=== PATIENT | female | born 1955 | race Caucasian/White ===

== ENCOUNTER 2018-08-26 12:12 | Inpatient (IN) | payer SELFPAY ==
[~2018-08-26] VITALS: Ht 157.5 cm; Wt 90.2 kg
--- NOTE | 2018-08-26 15:29 | ERD ---
ER Documentation Chief Complaint Chief Complaint abd pain , fever x 1 day , vomiting today HPI The patient is a 62-year-old female, presenting to the ER because of progressive abdominal pain, fever, vomiting for 1 day, denies hematemesis/hematochezia, the pain is 10/10, no aggravating/relieving factor. She denies any neck pain, chest pain, dyspnea, dysuria, diarrhea, constipation. She does not smoke nor drink Past medical/surgical history: None ROS All systems reviewed and are negative except as per history of present illness. Medications Home Meds No Active Prescriptions or Reported Meds Allergies Allergies: Coded Allergies: No Known Allergy (Unverified , 08/26/18) Physical Exam Vitals Vital Signs Date Temp Pulse Resp B/P (MAP) Pulse Ox O2 O2 Flow FiO2 Time Delivery Rate 08/26/18 98.6 89 18 125/66 95 Room Air 17:19 (85) 08/26/18 100.9 86 18 125/87 99 12:35 (100) Physical Exam Const: No acute distress. Head: Atraumatic. Eyes: Normal Conjunctiva. ENT: Normal External Ears, Nose and Mouth. Neck: Full range of motion. No meningismus. Resp: Clear to auscultation bilaterally. Cardio: Regular rate and rhythm. Abd: Soft, non distended, normal bowel sounds, right lower quadrant tenderness, mild right upper quadrant tenderness, no rigidity/rebound/CVA tenderness. Skin: No petechiae or rashes. Back: No midline or flank tenderness. Ext: No cyanosis, or edema. Neur: Awake and alert. No focal deficit Psych: Normal Mood and Affect. Result Diagram: 08/26/18 1546 08/26/18 1546 Results 24 hrs Laboratory Tests Test 08/26/18 15:46 08/26/18 17:15 White Blood Count 19.6 10^3/ul Red Blood Count 4.82 10^6/ul Hemoglobin 14.7 g/dl Hematocrit 44.1 % Mean Corpuscular Volume 91.5 fl Mean Corpuscular Hemoglobin 30.5 pg Mean Corpuscular Hemoglobin Concent 33.3 g/dl Red Cell Distribution Width 12.4 % Platelet Count 216 10^3/UL Mean Platelet Volume 11.4 fl Immature Granulocytes % 0.500 % Neutrophils % 87.6 % Lymphocytes % 5.6 % Monocytes % 6.0 % Eosinophils % 0.0 % Basophils % 0.3 % Nucleated Red Blood Cells % 0.0 /100WBC Immature Granulocytes # 0.100 10^3/ul Neutrophils # 17.1 10^3/ul Lymphocytes # 1.1 10^3/ul Monocytes # 1.2 10^3/ul Eosinophils # 0.0 10^3/ul Basophils # 0.1 10^3/ul Nucleated Red Blood Cells # 0.0 10^3/ul Sodium Level 140 mmol/L Potassium Level 3.0 mmol/L Chloride Level 101 mmol/L Carbon Dioxide Level 26 mmol/L Anion Gap 13 Blood Urea Nitrogen 17 mg/dl Creatinine 0.91 mg/dl Est Glomerular Filtrat Rate mL/min > 60 mL/min Glucose Level 133 mg/dl Calcium Level 9.2 mg/dl Total Bilirubin 1.2 mg/dl Direct Bilirubin 0.00 mg/dl Indirect Bilirubin 1.2 mg/dl Aspartate Amino Transf (AST/SGOT) 27 IU/L Alanine Aminotransferase (ALT/SGPT) 25 IU/L Alkaline Phosphatase 109 IU/L Total Protein 8.2 g/dl Albumin 4.3 g/dl Globulin 3.90 g/dl Albumin/Globulin Ratio 1.10 Lipase 131 U/L Bedside Urine pH (LAB) 7.0 Bedside Urine Protein (LAB) Negative Bedside Urine Glucose (UA) Negative Bedside Urine Ketones (LAB) Negative Bedside Urine Blood Trace-lysed Bedside Urine Nitrite (LAB) Negative Bedside Urine Leukocyte Esterase (L Negative Current Medications Medications Dose Sig/[place] Start Time Status Last (Trade) Ordered Route PRN Stop Time Admin Dose Reason Admin Sodium 1,000 ml @ Q1H STAT 08/26/18 DC 08/26/18 Chloride 1,000 mls/hr IV 15:42 15:47 08/26/18 16:41 Ondansetron 4 mg ONCE STAT 08/26/18 DC 08/26/18 HCl (Zofran IV 15:42 15:47 Inj) 08/26/18 15:43 Piperacillin 100 ml @ ONCE ONCE 08/26/18 DC 08/26/18 Sod/ 200 mls/hr IVPB 17:00 17:30 Tazobactam 08/26/18 17:29 Sod Procedures/MDM [address] [address] Radiology Main Line: [phone] DIAGNOSTIC IMAGING REPORT Patient: ANAI HERNANDEZ : 1955 Age: 62 Sex: F [id number] DOS: 08/26/18 1542 Ordering MD: IRENE WALTERS MD Location: E/R Room/Bed: AMENDMENT: 08/26/2018 5:33:14 PM Jean Pierre Garrison M.d This report contains findings which may be critical to patient care. Findings were discussed by telephone with Dr. Walters at 05:30 p.m. on 08/26/2018. The findings were acknowledged and understood. PROCEDURE: CT Abdomen and Pelvis Without Intravenous Contrast CLINICAL INDICATION: Abdominal pain. TECHNIQUE: Axial computed tomography images of the abdomen and pelvis without intravenous contrast. Sagittal and coronal reformatted images were created and reviewed. C TDIvol (mGy) = 19.56; total DLP (mGy-cm) = 1157.37. This CT exam was performed using one or more of the following dose reduction techniques: automated exposure control, adjustment of the mA and/or kV according to patient size, and/or use of iterative reconstruction technique. DICOM images are available. COMPARISON: None FINDINGS: LUNG BASES: Unremarkable. No mass. No consolidation. MEDIASTINUM: Small hiatal hernia noted. ABDOMEN: LIVER: The liver demonstrates decreased attenuation, consistent with hepatic steatosis. GALLBLADDER AND BILE DUCTS: Tiny calcified gallstones in the gallbladder. No gallbladder wall thickening. No pericholecystic fluid. No biliary dilatation. PANCREAS: Unremarkable. No ductal dilation. SPLEEN: Unremarkable. No splenomegaly. ADRENALS: Unremarkable. No mass. KIDNEYS AND URETERS: Unremarkable. No obstructing stones. No hyd ronephrosis. STOMACH AND BOWEL: Unremarkable. No obstruction. No mucosal thickening. PELVIS: APPENDIX: The appendix is enlarged, measuring 14 mm in diameter. There is mural enhancement and mild periappendiceal inflammation. The findings are consistent with acute appendicitis. BLADDER: Unremarkable. No stones. REPRODUCTIVE: Unremarkable as visualized. ABDOMEN and PELVIS: INTRAPERITONEAL SPACE: Unremarkable. No free air. No significant fluid collection. BONES/JOINTS: Degenerative spine changes are noted. Severe degeneration of the right hip. No acute fracture. No dislocation. SOFT TISSUES: Small umbilical hernia, containing only fat. VASCULATURE: The abdominal aorta is atherosclerotic. No aneurysm. LYMPH NODES: Unremarkable. No enlarged lymph nodes. IMPRESSION: 1. The appendix is enlarged, measuring 14 mm in diameter. There is mural enhan cement and mild periappendiceal inflammation. The findings are consistent with acute appendicitis. There is no associated perforation or abscess. 2. The liver demonstrates decreased attenuation, consistent with hepatic steatosis. 3. Tiny calcified gallstones in the gallbladder. No gallbladder wall thickening. No pericholecystic fluid. No biliary dilatation. RPTAT: [facility] Kate Garrison Physician Spring Machine Operator Date Time Electronically viewed and signed by Kate Garrison Physician Spring Machine Operator on 08/26/2018 17:34 RmC/ CC: IRENE WALTERS MD [id number] [place] [address] Radiology Main Line: [phone] DIAGNOSTIC IMAGING REPORT Patient: ANAI HERNANDEZ : 1955 Age: 62 Sex: F MR #: [id number] DOS: 08/26/18 1542 Ordering MD: IRENE WALTERS MD Location: E/R Room/Bed: PROCEDURE: US Abdomen. CLINICAL INDICATION: Abdominal Pain TECHNIQUE: Multiple real-time images were acquired of the patient's abdomen and retroperitoneum utilizing a high resolution transducer. COMPARISON: None FINDINGS: The pancreas is poorly visualized secondary to overlying bowel gas. The liver is enlarged measuring 18.8 cm and diffusely increased in echogenicity. This most likely represents fatty infiltration of the liver. Flow in the main portal vein is directed towards the liver. A gallstone is seen within the gallbladder. There is no evidence of pericholecystic fluid or gallbladder wall thickening. The technologist did not report a sonographic White's sign. The common bile duct measures 3.5 mm in maximal dimension. No free fluid is identified. There is mild thinning of the cortex of the right kidney. The right kidney measures 11.2 cm in length. The renal cortex on the right measures 0.6 cm. IMPRESSION: 1. Cholelithiasis. The gallbladder is otherwise sonographically unremarkable. 2. The liver is enlarged measuring 18.8 cm and diffusely increased in echogenicity, likely related to hepatic steatosis. 3. Mild thinning of the renal cortex of the right kidney. The renal cortex on the right measures 0.6 cm. RPTAT:AAJJ Marquise Ellison Physician Date Time Electronically viewed and signed by Marquise Ellison Physician on 08/26/2018 16:58 MC/ CC: IRENE WALTERS MD [id number] EKG chest x-ray pending MEDICAL MAKING DECISION: The patient is a 62-year-old female, presenting with acute appendicitis, acute hypokalemia, cholelithiasis. She was treated with 1 L normal saline, and Zosyn IV for acute appendicitis, Zofran IV for nausea, Tylenol suppository for fever, morphine 2 mg IV for pain, potassium chloride 60 mEq IV for acute hypokalemia The differential diagnoses considered include but are not limited to cholelit hiasis, cholecystitis, choledocholithiasis, cholangitis, pancreatitis, hepatitis, gastritis, peptic ulcer disease, gastric ulcer, appendicitis, cystitis, diverticulitis, partial small bowel obstruction. Consultation: I discussed the patient with the on-call surgeon Dr. Ga at 5:20 PM, who was made aware of the lab, the patient condition and treatment and he accepted the consult Departure Diagnosis: Primary Impression: Appendicitis Additional Impressions: Hypokalemia Cholelithiasis Condition: Stable Comments I discussed the findings with the patient. I discussed the patient with Dr Ball at 5:25 PM, who was made aware of the lab, the treatment, the patient condition. The patient is admitted to [facility] Disclaimer: Inadvertent spelling and grammatical errors are likely due to EHR/dictation software use and do not reflect on the overall quality of patient care. Also, please note that the electronic time recorded on this note does not necessarily reflect the actual time of the patient encounter. IRENE WALTERS MD Aug 26, 2018 15:29
[2018-08-26] MEDS ORDERED: ONDANSETRON 4 MG INJ IV STA ×2 (15:42→17:56)
[2018-08-26] MEDS ORDERED: SOD CHLORIDE 0.9% 1,000 ML IV STA (15:42)
[2018-08-26] MEDS ORDERED: PIPER-TAZO 3.375 GM IV (PMX) 100 ML IVPB ONE (17:00)
[2018-08-26] MEDS ORDERED: morphine 2 MG INJ IV STA (17:56)
[2018-08-26] MEDS: DEXTROSE 5%-0.45% NACL 1,000 ML IV SCH (17:57)
[2018-08-26] MEDS ORDERED: NACL 0.9% 3 ML SYG IV SCH (18:00)
[2018-08-26] MEDS ORDERED: MAGNESIUM HYDROXIDE 30ML CUP PO PRN (18:00)
[2018-08-26] MEDS ORDERED: ONDANSETRON 4 MG INJ IV PRN (18:00)
[2018-08-26] MEDS ORDERED: DOCUSATE SODIUM 100 MG CAP PO PRN (18:00)
[2018-08-26] MEDS ORDERED: ACETAMINOPHEN 650 MG SUPP PR ONE (18:00)
[2018-08-26] MEDS: POTASSIUM CHLORIDE 100 ML IVPB SCH ×3 (18:44→21:02)
--- NOTE | 2018-08-26 18:51 | HP ---
Date/Time of Note Date/Time of Note DATE: 08/26/18 TIME: 18:42 Assessment/Plan VTE Prophylaxis SCD applied (from Nsg): Yes Pharmacological prophylaxis: NA/contraindicated Pharm contraindication: low risk/ambulating Lines/Catheters IV Catheter Type (from Nrsg): Saline Lock Assessment/Plan Assessment/Plan 1. Acute appendicitis - seen on CT scan - Dr. Ga consulted by ED for surgical evaluation - pain control and started on empiric antibiotics given presented with low grade fever and elevated WBC - IVF and will keep NPO 2. Arthritis - patient ambulates with a cane but denies any SOB with ambulation 3. Diet - NPO for now 4. Disposition - Admit to Med/Surg for surgical evaluation of acute appendicitis. Patient is medically cleared for surgical intervention. Result Diagram: 08/26/18 1546 08/26/18 1546 Results 24hrs Laboratory Tests Test 08/26/18 15:46 08/26/18 17:15 White Blood Count 19.6 H Red Blood Count 4.82 Hemoglobin 14.7 Hematocrit 44.1 Mean Corpuscular Volume 91.5 Mean Corpuscular Hemoglobin 30.5 Mean Corpuscular Hemoglobin Concent 33.3 Red Cell Distribution Width 12.4 Platelet Count 216 Mean Platelet Volume 11.4 H Immature Granulocytes % 0.500 H Neutrophils % 87.6 H Lymphocytes % 5.6 L Monocytes % 6.0 Eosinophils % 0.0 Basophils % 0.3 Nucleated Red Blood Cells % 0.0 Immature Granulocytes # 0.100 H Neutrophils # 17.1 H Lymphocytes # 1.1 Monocytes # 1.2 H Eosinophils # 0.0 Basophils # 0.1 Nucleated Red Blood Cells # 0.0 Sodium Level 140 Potassium Level 3.0 L Chloride Level 101 Carbon Dioxide Level 26 Anion Gap 13 Blood Urea Nitrogen 17 Creatinine 0.91 Est Glomerular Filtrat Rate mL/min > 60 Glucose Level 133 Calcium Level 9.2 Total Bilirubin 1.2 Direct Bilirubin 0.00 Indirect Bilirubin 1.2 H Aspartate Amino Transf (AST/SGOT) 27 Alanine Aminotransferase (ALT/SGPT) 25 Alkaline Phosphatase 109 Total Protein 8.2 H Albumin 4.3 Globulin 3.90 H Albumin/Globulin Ratio 1.10 Lipase 131 Bedside Urine pH (LAB) 7.0 Bedside Urine Protein (LAB) Negative Bedside Urine Glucose (UA) Negative Bedside Urine Ketones (LAB) Negative Bedside Urine Blood Trace-lysed H Bedside Urine Nitrite (LAB) Negative Bedside Urine Leukocyte Esterase (L Negative HPI/ROS Admit Date/Time Admit Date/Time 08/26/18 Hx of Present Illness 62 yo F with no significant past medical history presented to ED with worsening RLQ pain for the past day. Patient states she had subjective fevers yesterday followed by multiple episodes of nonbloody emesis. She continued with emesis today and was brought into the ED by family. Patient is currently complaining of headache as well as RUQ pain. She describes the pain as moderate, nonradiating, localized to the RLQ, with associated nausea and vomiting. She l ast ate yesterday am. She denies any cardiac history and able to ambulate without shortness of breath. Currently, patient denies any chest pain, palpitations, dizziness, shortness of breath, urinary issues, constipation, or diarrhea. ROS All 12 systems reviewed and pertinent positives as per HPI. All others negative. Constitutional: nausea Eyes: No discharge ENT: No congestion Respiratory: No cough, No shortness of breath, No sputum, No wheezing Cardiovascular: No chest pain, No lightheadedness, No palpitations Gastrointestinal: pain, nausea, vomiting; No constipation, No diarrhea Genitourinary: no complaints Musculoskeletal: no complaints Skin: No laceration, No rash Neurologic: headache; No confusion, No focal-weakness, No syncope Endocrine: no complaints Lymphatic: no complaints Psychological: nl mood/affect Immunologic: no complaints PMH/Family/Social Past Medical History Medical History: no pertinent history Medications Current Medications Dextrose/Sodium Chloride 1,000 ml @ 100 mls/hr Q10H IV ; Start 08/26/18 at 17:57 IV Flush (NS 3 ml) 3 ml PER PROTOCOL IV ; Start 08/26/18 at 18:00 Ondansetron HCl (Zofran Inj) 4 mg Q6H PRN IV NAUSEA/VOMITING; Start 08/26/18 at 18:00 Acetaminophen (Tylenol Tab) 650 mg Q6H PRN PO .PAIN 1-3 OR TEMP; Start 08/26/18 at 18:00 Morphine Sulfate (morphine) 2 mg Q4H PRN IV .SEVERE PAIN 7-10; Start 08/26/18 at 18:00 Docusate Sodium (Colace) 100 mg Q12H PRN PO .CONSTIPATION; Start 08/26/18 at 18:00 Magnesium Hydroxide (Milk Of Mag) 30 ml DAILY PRN PO .CONSTIPATION; Start 08/26/18 at 18:00 Famotidine (Pepcid Iv) 20 mg Q12 IV ; Start 08/26/18 at 21:00 Potassium Chloride 100 ml @ 50 mls/hr Q2H IVPB ; Start 08/26/18 at 18:00; Stop 08/26/18 at 23:59 Piperacillin Sod/ Tazobactam Sod 100 ml @ 200 mls/hr Q8 IVPB ; Start 08/26/18 at 22:00 Coded Allergies: No Known Allergy (Unverified , 08/26/18) Past Surgical History Past Surgical Hx: no surgical history Family History Significant Family History: no pertinent family hx Social History Alcohol Use: none Smoking Status: Never smoker Drug Use: none Exam/Review of Systems Vital Signs Vitals Vital Signs Date Temp Pulse Resp B/P (MAP) Pulse Ox O2 O2 Flow FiO2 Time Delivery Rate 08/26/18 98.6 88 22 112/74 98 Room Air 18:25 (87) Exam Exam General: Patient is a pleasant female, mild distress secondary to headache, answering questions appropriately HEENT: Atraumatic, normocephalic. The pupils are equal, round and reactive. Extraocular motor are intact Neck: Supple with full range of motion. No rigidity or meningismus Chest: Nontender Lungs: Clear bilaterally. no wheezing or rhonchi Heart: Normal S1-S2, Regular rhythm and rate. No murmur, S3, or S4 Abdomen: Soft , nontender, nondistended , bowel sounds are present. No guarding no rebound tenderness , No masses or organomegaly. No costovertebral temporal angle mass Extremities: no cyanosis, clubbing or edema Neurologic: Normal mental status, speech normal, cranial nerves II through XII are intact, motor and sensory are intact, Additional Comments No home medications AMENDMENT: 08/26/2018 5:33:14 PM Jean Pierre Garrison M.d This report contains findings which may be critical to patient care. Findings were discussed by telephone with Dr. Love at 05:30 p.m. on 08/26/2018. The findings were acknowledged and understood. PROCEDURE: CT Abdomen and Pelvis Without Intravenous Contrast CLINICAL INDICATION: Abdominal pain. TECHNIQUE: Axial computed tomography images of the abdomen and pelvis without intravenous contrast. Sagittal and coronal reformatted images were created and reviewed. CTDIvol (mGy) = 19.56; total DLP (mGy-cm) = 1157.37. This CT exam was performed using one or more of the following dose reduction techniques: automated exposure control, adjustment of the mA and/or kV according to patient size, and/or use of iterative reconstruction technique. DICOM images are available. COMPARISON: None FINDINGS: LUNG BASES: Unremarkable. No mass. No consolidation. MEDIASTINUM: Small hiatal hernia noted. ABDOMEN: LIVER: The liver demonstrates decreased attenuation, consistent with hepatic steatosis. GALLBLADDER AND BILE DUCTS: Tiny calcified gallstones in the gallbladder. No gallbladder wall thickening. No pericholecystic fluid. No biliary dilatation. PANCREAS: Unremarkable. No ductal dilation. SPLEEN: Unremarkable. No splenomegaly. ADRENALS: Unremarkable. No mass. KIDNEYS AND URETERS: Unremarkable. No obstructing stones. No hydronephrosis. STOMACH AND BOWEL: Unremarkable. No obstruction. No mucosal thickening. PELVIS: APPENDIX: The appendix is enlarged, measuring 14 mm in diameter. There is mural enhancement and mild periappendiceal inflammation. The findings are consistent with acute appendicitis. BLADDER: Unremarkable. No stones. REPRODUCTIVE: Unremarkable as visualized. ABDOMEN and PELVIS: INTRAPERITONEAL SPACE: Unremarkable. No free air. No significant fluid collection. BONES/JOINTS: Degenerative spine changes are noted. Severe degeneration of the right hip. No acute fracture. No dislocation. SOFT TISSUES: Small umbilical hernia, containing only fat. VASCULATURE: The abdominal aorta is atherosclerotic. No aneurysm. LYMPH NODES: Unremarkable. No enlarged lymph nodes. IMPRESSION: 1. The appendix is enlarged, measuring 14 mm in diameter. There is mural enhancement and mild periappendiceal inflammation. The findings are consistent with acute appendicitis. There is no associated perforation or abscess. 2. The liver demonstrates decreased attenuation, consistent with hepatic steatosis. 3. Tiny calcified gallstones in the gallbladder. No gallbladder wall thickening. No pericholecystic fluid. No biliary dilatation. RPTAT: [facility] Kate Garrison Physician Process Inspector Date Time Electronically viewed and signed by Kate Garrison, Physician Process Inspector on 08/26/2018 17:34 PROCEDURE: US Abdomen. CLINICAL INDICATION: Abdominal Pain TECHNIQUE: Multiple real-time images were acquired of the patient's abdomen and retroperitoneum utilizing a high resolution transducer. COMPARISON: None FINDINGS: The pancreas is poorly visualized secondary to overlying bowel gas. The liver is enlarged measuring 18.8 cm and diffusely increased in echogenicity. This most likely represents fatty infiltration of the liver. Flow in the main portal vein is directed towards the liver. A gallstone is seen within the gallbladder. There is no evidence of pericholecystic fluid or gallbladder wall thickening. The technologist did not report a sonographic White's sign. The common bile duct measures 3.5 mm in maximal dimension. No free fluid is identified. There is mild thinning of the cortex of the right kidney. The right kidney measures 11.2 cm in length. The renal cortex on the right measures 0.6 cm. IMPRESSION: 1. Cholelithiasis. The gallbladder is otherwise sonographically unremarkable. 2. The liver is enlarged measuring 18.8 cm and diffusely increased in echogenicity, likely related to hepatic steatosis. 3. Mild thinning of the renal cortex of the right kidney. The renal cortex on the right measures 0.6 cm. RPTAT:AAJJ Physician Esther Date Time Electronically viewed and signed by Marquise Ellison Physician on 08/26/2018 16:58 DEANDRE MORALES MD Aug 26, 2018 18:51
--- NOTE | 2018-08-26 20:19 | CONS ---
Assessment/Plan Assessment/Plan Hospital Course (Demo Recall) 1. Abdominal pain 2. Nausea vomiting 3. Leukocytosis 4. CT diagnosis of acute nonperforated appendicitis without an appendicolith -I had a long discussion through sulfate drier machine operator with the patient. Risks benefits and alternatives of surgery versus medical management were fully explained. Patient elects to proceed with medical management (2 days of IV antibiotics +8 days of oral antibiotics) 5. BMI 30 -Encourage nutrition and exercise optimization eventually 6. Hepatic steatosis -Encourage weight optimization -Encourage diet and exercise optimization 7. Hypokalemia -Please replete Thank you very much for consulting this patient's care, Consultation Date/Type/Reason Admit Date/Time 08/26/18 Date of Consultation: Aug 26, 2018 Type of Consult General surgical Reason for Consultation Abdominal pain Leukocytosis BMI 30 [address] with appendicitis without perforation nor appendicolith Date/Time of Note DATE: 08/26/18 TIME: 20:11 Hx of Present Illness Mariya Murillo is a 62 yo F who presents to ED with worsening RLQ pain for the past day with associated subjective fevers and non-bilious nonbloody vomiting. No chest pain or shortness of breath. No radiation of the pain. No cough. No seizure. No blood per mouth or rectum. No dysuria. No trauma. No visual or neurologic changes. No abnormal vaginal discharge. She reports packing and cell though she had similar pain and they were told she had colonic issues. She was given a shot and improved. Her work-up identifies low-grade temperature with leukocytosis and CT diagnosis of nonperforated appendicitis without an appendicolith. Surgical consult is obtained further evaluation and treatment. 12 point review of system is negative unless otherwise addressed in chart Past Medical History BMI 30 Arthritis Gallstones Hepatic steatosis Acute leukocytosis ? History of colitis Home Meds No Active Prescriptions or Reported Meds Medications Current Medications Dextrose/Sodium Chloride 1,000 ml @ 100 mls/hr Q10H IV ; Start 08/26/18 at 17:57 IV Flush (NS 3 ml) 3 ml PER PROTOCOL IV ; Start 08/26/18 at 18:00 Ondansetron HCl (Zofran Inj) 4 mg Q6H PRN IV NAUSEA/VOMITING; Start 08/26/18 at 18:00 Acetaminophen (Tylenol Tab) 650 mg Q6H PRN PO .PAIN 1-3 OR TEMP; Start 08/26/18 at 18:00 Morphine Sulfate (morphine) 2 mg Q4H PRN IV .SEVERE PAIN 7-10; Start 08/26/18 at 18:00 Docusate Sodium (Colace) 100 mg Q12H PRN PO .CONSTIPATION; Start 08/26/18 at 18:00 Magnesium Hydroxide (Milk Of Mag) 30 ml DAILY PRN PO .CONSTIPATION; Start 08/26/18 at 18:00 Famotidine (Pepcid Iv) 20 mg Q12 IV ; Start 08/26/18 at 21:00 Potassium Chloride 100 ml @ 50 mls/hr Q2H IVPB Last administered on 08/26/18at 18:44; Admin Dose 50 MLS/HR; Start 08/26/18 at 18:00; Stop 08/26/18 at 23:59 Piperacillin Sod/ Tazobactam Sod 100 ml @ 200 mls/hr Q8 IVPB ; Start 08/26/18 at 22:00 Allergies: Coded Allergies: No Known Allergy (Unverified , 08/26/18) Past Surgical History Past Surgical Hx: no surgical history Family History Significant Family History: no pertinent family hx Social History Alcohol Use: none Smoking Status: Never smoker Drug Use: none Exam/Review of Systems Exam Vitals Vital Signs Date Temp Pulse Resp B/P (MAP) Pulse Ox O2 O2 Flow FiO2 Time Delivery Rate 08/26/18 98.6 88 22 112/74 98 Room Air 18:25 (87) Constitutional: alert, oriented, obese; No distress Psych: nl mood/affect; No anxiety, No confusion Head: normocephalic, atraumatic Eyes: nl conjunctiva, EOMI, PERRL; No icteric ENMT: nl external ears & nose, nl lips & teeth, mucosa pink and moist Neck: supple, non-tender; No jvd Respiratory: normal air movement; No congested cough, No labored breathing, No wheezing Cardiovascular: regular rate and rhythm; No edema Gastrointestinal: soft, tender (Minimally tender in right lower quadrant); No distended, No firm, No rebound or guarding Musculoskeletal: nl extremities to inspection; No joint tenderness Extremities: normal pulses; No calf tenderness, No edema Neurological: nl mental status, nl speech, nl strength Skin: nl turgor; No rash or lesions, No diaphoresis Lymph: nl lymph nodes Results Result Diagram: 08/26/18 1546 08/26/18 1546 Results 24hrs Laboratory Tests Test 08/26/18 15:46 08/26/18 17:15 White Blood Count 19.6 H Red Blood Count 4.82 Hemoglobin 14.7 Hematocrit 44.1 Mean Corpuscular Volume 91.5 Mean Corpuscular Hemoglobin 30.5 Mean Corpuscular Hemoglobin Concent 33.3 Red Cell Distribution Width 12.4 Platelet Count 216 Mean Platelet Volume 11.4 H Immature Granulocytes % 0.500 H Neutrophils % 87.6 H Lymphocytes % 5.6 L Monocytes % 6.0 Eosinophils % 0.0 Basophils % 0.3 Nucleated Red Blood Cells % 0.0 Immature Granulocytes # 0.100 H Neutrophils # 17.1 H Lymphocytes # 1.1 Monocytes # 1.2 H Eosinophils # 0.0 Basophils # 0.1 Nucleated Red Blood Cells # 0.0 Sodium Level 140 Potassium Level 3.0 L Chloride Level 101 Carbon Dioxide Level 26 Anion Gap 13 Blood Urea Nitrogen 17 Creatinine 0.91 Est Glomerular Filtrat Rate mL/min > 60 Glucose Level 133 Calcium Level 9.2 Total Bilirubin 1.2 Direct Bilirubin 0.00 Indirect Bilirubin 1.2 H Aspartate Amino Transf (AST/SGOT) 27 Alanine Aminotransferase (ALT/SGPT) 25 Alkaline Phosphatase 109 Total Protein 8.2 H Albumin 4.3 Globulin 3.90 H Albumin/Globulin Ratio 1.10 Lipase 131 Bedside Urine pH (LAB) 7.0 Bedside Urine Protein (LAB) Negative Bedside Urine Glucose (UA) Negative Bedside Urine Ketones (LAB) Negative Bedside Urine Blood Trace-lysed H Bedside Urine Nitrite (LAB) Negative Bedside Urine Leukocyte Esterase (L Negative Medications Medication Current Medications Dextrose/Sodium Chloride 1,000 ml @ 100 mls/hr Q10H IV ; Start 08/26/18 at 17:57 IV Flush (NS 3 ml) 3 ml PER PROTOCOL IV ; Start 08/26/18 at 18:00 Ondansetron HCl (Zofran Inj) 4 mg Q6H PRN IV NAUSEA/VOMITING; Start 08/26/18 at 18:00 Acetaminophen (Tylenol Tab) 650 mg Q6H PRN PO .PAIN 1-3 OR TEMP; Start 08/26/18 at 18:00 Morphine Sulfate (morphine) 2 mg Q4H PRN IV .SEVERE PAIN 7-10; Start 08/26/18 at 18:00 Docusate Sodium (Colace) 100 mg Q12H PRN PO .CONSTIPATION; Start 08/26/18 at 18:00 Magnesium Hydroxide (Milk Of Mag) 30 ml DAILY PRN PO .CONSTIPATION; Start 08/26/18 at 18:00 Famotidine (Pepcid Iv) 20 mg Q12 IV ; Start 08/26/18 at 21:00 Potassium Chloride 100 ml @ 50 mls/hr Q2H IVPB Last administered on 08/26/18at 18:44; Admin Dose 50 MLS/HR; Start 08/26/18 at 18:00; Stop 08/26/18 at 23:59 Piperacillin Sod/ Tazobactam Sod 100 ml @ 200 mls/hr Q8 IVPB ; Start 08/26/18 at 22:00 NAYELI ZHOU MD Aug 26, 2018 20:19
[2018-08-26] MEDS: FAMOTIDINE 20 MG INJ IV SCH (20:31)
[2018-08-27 00:16] VITALS: Ht 157.5 cm; Wt 90.2 kg
[2018-08-27] MEDS: PIPER-TAZO 3.375 GM IV (PMX) 100 ML IVPB SCH ×4 (00:35→22:27)
[2018-08-27] MEDS: morphine 2 MG INJ IV PRN (00:39)
[2018-08-27 00:41] VITALS: BP 113/75; PULSE 85; RESP 18
[2018-08-27] MEDS: POTASSIUM CHLORIDE 100 ML IVPB SCH (01:30)
[2018-08-27] MEDS: DEXTROSE 5%-0.45% NACL 1,000 ML IV SCH ×2 (03:57→12:07)
[2018-08-27 07:56] VITALS: BP 109/57; PULSE 85; RESP 18
[2018-08-27] MEDS: FAMOTIDINE 20 MG INJ IV SCH ×2 (09:03→20:48)
[2018-08-27] MEDS ORDERED: MAGNESIUM SULFATE 2 GM/50 ML 50 ML IVPB ONE (09:30)
--- NOTE | 2018-08-27 10:36 | PN ---
Date/Time of Note Date/Time of Note DATE: 08/27/18 TIME: 10:33 Assessment/Plan Lines/Catheters IV Catheter Type (from Nrs): Peripheral IV Assessment/Plan Chief Complaint/Hosp Course 1. Abdominal pain: Improved 2. Nausea vomiting 3. Leukocytosis: Improving 4. CT diagnosis of acute nonperforated appendicitis without an appendicolith: Dr. Ga had a long discussion through cert occupational therapy asst with the patient. Risks benefits and alternatives of surgery versus medical management were fully explained. Patient elects to proceed with medical management -2 days of IV antibiotics +8 days of oral antibiotics -Pain management as needed -Close monitoring 5. BMI 30 -Encourage nutrition and exercise optimization eventually 6. Hepatic steatosis -Encourage weight optimization -Encourage diet and exercise optimization 7. Hypokalemia improved -Monitor Thank you. Patient seen and examined in collaboration with Dr. Robin Ga. Subjective 24 Hr Interval Summary WBC improving. Min temp. Abdominal pain much improved. No chills, sob, congested cough, cp, palpitations, henderson, dizziness, nausea, vomiting, diarrhea, dysuria. Exam/Review of Systems Vital Signs Vitals Vital Signs Date Temp Pulse Resp B/P (MAP) Pulse Ox O2 O2 Flow FiO2 Time Delivery Rate 08/27/18 99.2 85 18 109/57 93 Room Air 07:56 (74) Intake and Output 08/26/18 08/26/18 08/27/18 1515:00 23:00 07:00 IntakeIntake Total 1100 ml OutputOutput Total 300 ml BalanceBalance -300 ml 1100 ml Exam Free Text/Dictation Constitutional: alert, oriented, obese; No distress Psych: nl mood/affect; No anxiety, No confusion Head: normocephalic, atraumatic Eyes: nl conjunctiva, EOMI, PERRL; No icteric ENMT: nl external ears & nose, nl lips & teeth, mucosa pink and moist Neck: supple, non-tender; No jvd Respiratory: normal air movement; No congested cough, No labored breathing, No wheezing Cardiovascular: regular rate and rhythm; No edema Gastrointestinal: soft, tender (Minimally tender in right lower quadrant- improved); No distended, No firm, No rebound or guarding Musculoskeletal: nl extremities to inspection; No joint tenderness Extremities: normal pulses; No calf tenderness, No edema Neurological: nl mental status, nl speech, nl strength Skin: nl turgor; No rash or lesions, No diaphoresis Lymph: nl lymph nodes Results Result Diagram: 08/27/18 0423 08/27/18 0423 ALEXI PARRISH NP Aug 27, 2018 10:36
[2018-08-27] MEDS ORDERED: KETOROLAC 15 MG INJ IV PRN (12:00)
[2018-08-27 14:58] VITALS: BP 106/53; PULSE 79; RESP 18
--- NOTE | 2018-08-27 16:39 | PN ---
Date/Time of Note Date/Time of Note DATE: 08/27/18 TIME: 16:37 Assessment/Plan VTE Prophylaxis Risk score (from Ns)>0 risk: 4 SCD applied (from Ns): Yes Pharmacological prophylaxis: NA/contraindicated Pharm contraindication: low risk/ambulating Lines/Catheters IV Catheter Type (from [facility]): Peripheral IV Assessment/Plan Assessment/Plan 1. Acute appendicitis- improving - will advance diet as tolerated - will transition to PO antibiotics tomorrow and d/c home - seen on CT scan - Surgery consultation appreciated and plans for medical management at this time 2. Arthritis - patient ambulates with a cane but denies any SOB with ambulation 3. Disposition - Will continue IV antibiotics until tomorrow and transition to PO. Once tolerating regular diet without any issues, will d/c home Result Diagram: 08/27/18 0423 08/27/18 0423 Results 24hrs Laboratory Tests Test 08/26/18 17:15 08/27/18 04:23 Bedside Urine pH (LAB) 7.0 Bedside Urine Protein (LAB) Negative Bedside Urine Glucose (UA) Negative Bedside Urine Ketones (LAB) Negative Bedside Urine Blood Trace-lysed H Bedside Urine Nitrite (LAB) Negative Bedside Urine Leukocyte Esterase (L Negative White Blood Count 13.3 #H Red Blood Count 4.27 Hemoglobin 12.9 Hematocrit 38.8 Mean Corpuscular Volume 90.9 Mean Corpuscular Hemoglobin 30.2 Mean Corpuscular Hemoglobin Concent 33.2 Red Cell Distribution Width 12.8 Platelet Count 196 Mean Platelet Volume 11.7 H Immature Granulocytes % 0.400 Neutrophils % 84.3 H Lymphocytes % 8.9 L Monocytes % 5.9 Eosinophils % 0.1 Basophils % 0.4 Nucleated Red Blood Cells % 0.0 Immature Granulocytes # 0.050 H Neutrophils # 11.2 H Lymphocytes # 1.2 Monocytes # 0.8 Eosinophils # 0.0 Basophils # 0.1 Nucleated Red Blood Cells # 0.0 Sodium Level 140 Potassium Level 4.2 Chloride Level 105 Carbon Dioxide Level 26 Anion Gap 9 Blood Urea Nitrogen 15 Creatinine 0.89 Est Glomerular Filtrat Rate mL/min > 60 Glucose Level 128 Calcium Level 8.0 L Magnesium Level 1.6 L Total Bilirubin 1.2 Direct Bilirubin 0.00 Indirect Bilirubin 1.2 H Aspartate Amino Transf (AST/SGOT) 25 Alanine Aminotransferase (ALT/SGPT) 22 Alkaline Phosphatase 71 Total Protein 7.0 # Albumin 3.4 Globulin 3.60 H Albumin/Globulin Ratio 0.94 Subjective 24 Hr Interval Summary Free Text/Dictation Patient states shes feeling better and pain improving. Tolerating clear diet. Exam/Review of Systems Exam Vitals Vital Signs Date Temp Pulse Resp B/P (MAP) Pulse Ox O2 O2 Flow FiO2 Time Delivery Rate 08/27/18 98.1 79 18 106/53 95 14:58 (70) 08/27/18 Room Air 07:56 Intake and Output 08/26/18 08/26/18 08/27/18 1515:00 23:00 07:00 IntakeIntake Total 1100 ml OutputOutput Total 300 ml BalanceBalance -300 ml 1100 ml Exam General: Patient is a pleasant female, mild distress secondary to headache, answering questions appropriately Neck: Supple Chest: Nontender Lungs: Clear bilaterally. no wheezing or rhonchi Heart: Normal S1-S2, Regular rhythm and rate. No murmur, S3, or S4 Abdomen: Soft , nontender, nondistended , bowel sounds are present. No guarding no rebound tenderness Extremities: no cyanosis, clubbing or edema Results Results 24hrs Laboratory Tests Test 08/26/18 17:15 08/27/18 04:23 Bedside Urine pH (LAB) 7.0 Bedside Urine Protein (LAB) Negative Bedside Urine Glucose (UA) Negative Bedside Urine Ketones (LAB) Negative Bedside Urine Blood Trace-lysed H Bedside Urine Nitrite (LAB) Negative Bedside Urine Leukocyte Esterase (L Negative White Blood Count 13.3 #H Red Blood Count 4.27 Hemoglobin 12.9 Hematocrit 38.8 Mean Corpuscular Volume 90.9 Mean Corpuscular Hemoglobin 30.2 Mean Corpuscular Hemoglobin Concent 33.2 Red Cell Distribution Width 12.8 Platelet Count 196 Mean Platelet Volume 11.7 H Immature Granulocytes % 0.400 Neutrophils % 84.3 H Lymphocytes % 8.9 L Monocytes % 5.9 Eosinophils % 0.1 Basophils % 0.4 Nucleated Red Blood Cells % 0.0 Immature Granulocytes # 0.050 H Neutrophils # 11.2 H Lymphocytes # 1.2 Monocytes # 0.8 Eosinophils # 0.0 Basophils # 0.1 Nucleated Red Blood Cells # 0.0 Sodium Level 140 Potassium Level 4.2 Chloride Level 105 Carbon Dioxide Level 26 Anion Gap 9 Blood Urea Nitrogen 15 Creatinine 0.89 Est Glomerular Filtrat Rate mL/min > 60 Glucose Level 128 Calcium Level 8.0 L Magnesium Level 1.6 L Total Bilirubin 1.2 Direct Bilirubin 0.00 Indirect Bilirubin 1.2 H Aspartate Amino Transf (AST/SGOT) 25 Alanine Aminotransferase (ALT/SGPT) 22 Alkaline Phosphatase 71 Total Protein 7.0 # Albumin 3.4 Globulin 3.60 H Albumin/Globulin Ratio 0.94 Medications Medication Current Medications Dextrose/Sodium Chloride 1,000 ml @ 100 mls/hr Q10H IV Last administered on 08/27/18at 12:07; Admin Dose 100 MLS/HR; Start 08/26/18 at 17:57 IV Flush (NS 3 ml) 3 ml PER PROTOCOL IV ; Start 08/26/18 at 18:00 Ondansetron HCl (Zofran Inj) 4 mg Q6H PRN IV NAUSEA/VOMITING; Start 08/26/18 at 18:00 Acetaminophen (Tylenol Tab) 650 mg Q6H PRN PO .PAIN 1-3 OR TEMP; Start 08/26/18 at 18:00 Morphine Sulfate (morphine) 2 mg Q4H PRN IV .SEVERE PAIN 7-10 Last administered on 08/27/18at 00:39; Admin Dose 2 MG; Start 08/26/18 at 18:00 Docusate Sodium (Colace) 100 mg Q12H PRN PO .CONSTIPATION; Start 08/26/18 at 18:00 Magnesium Hydroxide (Milk Of Mag) 30 ml DAILY PRN PO .CONSTIPATION; Start 08/26/18 at 18:00 Famotidine (Pepcid Iv) 20 mg Q12 IV Last administered on 08/27/18at 09:03; Admin Dose 20 MG; Start 08/26/18 at 21:00 Piperacillin Sod/ Tazobactam Sod 100 ml @ 200 mls/hr Q8 IVPB Last administered on 08/27/18at 14:56; Admin Dose 200 MLS/HR; Start 08/26/18 at 22:00 Ketorolac Tromethamine (Toradol) 15 mg Q6H PRN IV headache, pain; Start 08/27/18 at 12:00; Stop 08/30/18 at 11:59 DEANDRE MORALES MD Aug 27, 2018 16:39
[2018-08-27 19:35] VITALS: BP 125/61; PULSE 75; RESP 20
[2018-08-27] MEDS: ACETAMINOPHEN 325 MG TAB PO PRN (20:54)
[2018-08-28] MEDS: DEXTROSE 5%-0.45% NACL 1,000 ML IV SCH ×2 (00:17→11:29)
[2018-08-28 02:00] VITALS: BP 106/60; PULSE 63; RESP 20
[2018-08-28] MEDS: ACETAMINOPHEN 325 MG TAB PO PRN (05:29)
[2018-08-28] MEDS: PIPER-TAZO 3.375 GM IV (PMX) 100 ML IVPB SCH ×2 (05:30→13:17)
[2018-08-28 07:41] VITALS: BP 109/56; PULSE 66; RESP 18
[2018-08-28] MEDS: FAMOTIDINE 20 MG INJ IV SCH (09:11)
[2018-08-28] MEDS: morphine 2 MG INJ IV PRN (09:14)
--- NOTE | 2018-08-28 13:16 | PN ---
Date/Time of Note Date/Time of Note DATE: 08/28/18 TIME: 13:15 Assessment/Plan Lines/Catheters IV Catheter Type (from Nrs): Peripheral IV Assessment/Plan Chief Complaint/Hosp Course 1. Abdominal pain: Improved 2. Nausea vomiting 3. Leukocytosis: Improving 4. CT diagnosis of acute nonperforated appendicitis without an appendicolith: Dr. Ga had a long discussion through manager planning with the patient. Risks benefits and alternatives of surgery versus medical management were fully explained. Patient elects to proceed with medical management -2 days of IV antibiotics +8 days of oral antibiotics> ordered CBC for today to evaluate WBC if normalized, DC okay with oral antibiotics -Pain management as needed -Close monitoring 5. BMI 30 -Encourage nutrition and exercise optimization eventually 6. Hepatic steatosis -Encourage weight optimization -Encourage diet and exercise optimization 7. Hypokalemia improved -Monitor Thank you. Patient seen and examined in collaboration with Dr. Robin Ga. Subjective 24 Hr Interval Summary No fevers, chills, sob, congested cough, cp, palpitations, henderson, dizziness, n/v/d/dysuria. Abdominal pain much improved. Exam/Review of Systems Vital Signs Vitals Vital Signs Date Temp Pulse Resp B/P (MAP) Pulse Ox O2 O2 Flow FiO2 Time Delivery Rate 08/28/18 98.2 66 18 109/56 94 Room Air 07:41 (73) Intake and Output 08/27/18 08/27/18 08/28/18 1515:00 23:00 07:00 IntakeIntake Total 490 ml 940 ml 1400 ml BalanceBalance 490 ml 940 ml 1400 ml Exam Free Text/Dictation Constitutional: alert, oriented, obese; No distress Psych: nl mood/affect; No anxiety, No confusion Head: normocephalic, atraumatic Eyes: nl conjunctiva, EOMI, PERRL; No icteric ENMT: nl external ears & nose, nl lips & teeth, mucosa pink and moist Neck: supple, non-tender; No jvd Respiratory: normal air movement; No congested cough, No labored breathing, No wheezing Cardiovascular: regular rate and rhythm; No edema Gastrointestinal: soft, tender (Minimally tender in right lower quadrant- improved); No distended, No firm, No rebound or guarding Musculoskeletal: nl extremities to inspection; No joint tenderness Extremities: normal pulses; No calf tenderness, No edema Neurological: nl mental status, nl speech, nl strength Skin: nl turgor; No rash or lesions, No diaphoresis Lymph: nl lymph nodes Results Result Diagram: 08/27/18 0423 08/27/18 0423 ALEXI PARRISH NP Aug 28, 2018 13:16
--- NOTE | 2018-08-28 13:31 | PN ---
Date/Time of Note Date/Time of Note DATE: 08/28/18 TIME: 13:29 Assessment/Plan VTE Prophylaxis Risk score (from Ns)>0 risk: 4 SCD applied (from Ns): Yes Pharmacological prophylaxis: NA/contraindicated Pharm contraindication: low risk/ambulating Lines/Catheters IV Catheter Type (from Nrsg): Peripheral IV Assessment/Plan Assessment/Plan 1. Acute appendicitis- resolving - no longer experiencing pain and tolerating PO intake - if WBC nl, okay for d/c home per Surgery. Will d/c on 8 more days of PO antibiotics - seen on CT scan - Surgery consultation appreciated and plans for medical management at this time 2. Arthritis - patient ambulates with a cane but denies any SOB with ambulation 3. Disposition - If WBC normalize, will d/c home on PO antibiotics Result Diagram: 08/27/1842208/27/18422 Subjective 24 Hr Interval Summary Free Text/Dictation Patient doing well and denies any pain. tolerating PO intake. Exam/Review of Systems Exam Vitals Vital Signs Date Temp Pulse Resp B/P (MAP) Pulse Ox O2 O2 Flow FiO2 Time Delivery Rate 08/28/18 98.2 66 18 109/56 94 Room Air 07:41 (73) Intake and Output 08/27/18 08/27/18 08/28/18 1515:00 23:00 07:00 IntakeIntake Total 490 ml 940 ml 1400 ml BalanceBalance 490 ml 940 ml 1400 ml Exam General: Patient is a pleasant female, mild distress secondary to headache, answering questions appropriately Neck: Supple Chest: Nontender Lungs: Clear bilaterally. no wheezing or rhonchi Heart: Normal S1-S2, Regular rhythm and rate. No murmur, S3, or S4 Abdomen: Soft , nontender, nondistended , bowel sounds are present. No guarding no rebound tenderness Extremities: no cyanosis, clubbing or edema Medications Medication Current Medications Dextrose/Sodium Chloride 1,000 ml @ 100 mls/hr Q10H IV Last administered on 08/28/18at 11:29; Admin Dose 100 MLS/HR; Start 08/26/18 at 17:57 IV Flush (NS 3 ml) 3 ml PER PROTOCOL IV ; Start 08/26/18 at 18:00 Ondansetron HCl (Zofran Inj) 4 mg Q6H PRN IV NAUSEA/VOMITING; Start 08/26/18 at 18:00 Acetaminophen (Tylenol Tab) 650 mg Q6H PRN PO .PAIN 1-3 OR TEMP Last administered on 08/28/18 05:29; Admin Dose 650 MG; Start 08/26/18 at 18:00 Morphine Sulfate (morphine) 2 mg Q4H PRN IV .SEVERE PAIN 7-10 Last administered on 08/28/18 09:14; Admin Dose 2 MG; Start 08/26/18 at 18:00 Docusate Sodium (Colace) 100 mg Q12H PRN PO .CONSTIPATION; Start 08/26/18 at 18:00 Magnesium Hydroxide (Milk Of Mag) 30 ml DAILY PRN PO .CONSTIPATION; Start 08/26/18 at 18:00 Famotidine (Pepcid Iv) 20 mg Q12 IV Last administered on 08/28/18at 09:11; Admin Dose 20 MG; Start 08/26/18 at 21:00 Piperacillin Sod/ Tazobactam Sod 100 ml @ 200 mls/hr Q8 IVPB Last administered on 08/28/18at 13:17; Admin Dose 200 MLS/HR; Start 08/26/18 at 22:00 Ketorolac Tromethamine (Toradol) 15 mg Q6H PRN IV headache, pain; Start 08/27/18 at 12:00; Stop 08/30/18 at 11:59 DEANDRE MORALES MD Aug 28, 2018 13:31
[2018-08-28] MEDS ORDERED: AMOX1TAB10 PO (13:32)
--- NOTE | 2018-08-28 13:34 | PDOCDIS ---
Discharge Instructions DIAGNOSIS Discharge Diagnosis 1. Acute appendicitis- resolving 2. Arthritis CONDITION [id number] Patient Condition: [id number] Stable HOME CARE INSTRUCTIONS: [id number] Diet Instructions: [id number] Low Fat /Cholesterol ACTIVITY: [id number] Activity Restrictions: [id number] No Restrictions FOLLOW UP/APPOINTMENTS Follow-up Plan 1. Follow up with your primary care physician in 1-2 weeks 2. You will need to continue on 8 more days of antibiotics. Start tomorrow with breakfast and take the medication twice a day 3. If experiencing any concerning symptoms or worsening abdominal pain, please go to your closest emergency department 1. Siga con caal mdico de atencin primaria en 1-2 semanas 2. Tendr que continuar 8 ruiz ms de antibiticos. Comience maana con el desayuno y tome el medicamento dos veces al da 3. Si experimenta algn sntoma preocupante o empeoramiento del dolor abdominal, vaya a caal departamento de emergencias DEANDRE Jones MD Aug 28, 2018 13:34
[2018-08-28 14:57] VITALS: BP 114/58; PULSE 66; RESP 20
--- NOTE | 2018-08-28 20:02 | DS ---
Date/Time of Note Date/Time of Note DATE: 08/28/18 TIME: 20:00 Discharge Summary Admission/Discharge Info Admit Date/Time Aug 26, 2018 at 17:26 Discharge Date/Time Aug 28, 2018 at 17:40 Discharge Diagnosis 1. Acute appendicitis- resolving 2. Arthritis Patient Condition: Stable Consults General Surgery- Dr. Ga Hx of Present Illness 62 yo F with no significant past medical history presented to ED with worsening RLQ pain for the past day. Patient states she had subjective fevers yesterday followed by multiple episodes of nonbloody emesis. She continued with emesis today and was brought into the ED by family. Patient is currently complaining of headache as well as RUQ pain. She describes the pain as moderate, nonradiating, localized to the RLQ, with associated nausea and vomiting. She last ate yesterday am. She denies any cardiac history and able to ambulate without shortness of breath. Currently, patient denies any chest pain, palpitations, dizziness, shortness of breath, urinary issues, constipation, or diarrhea. Hospital Course Patient was admitted for surgical intervention and started on empiric antibiotics for acute appendicitis. After discussion with the surgeon, patient opted for medical management for acute appendicitis. She was continued on IV antibiotics for 2 days and diet was advanced. Abdominal pain improved significantly and she was transitioned to PO antibiotics. Patients vitals remained stable and was tolerating PO intake. She was discharged home in stable condition. Home Meds Active Scripts Amoxicillin/Potassium Clav (Amox-Clav 875-125 mg Tablet) 875-125 mg Tab, 1 TAB PO BID for 8 Days, #16 TAB Prov:DEANDRE MORALES MD 08/28/18 Follow-up Plan 1. Follow up with your primary care physician in 1-2 weeks 2. You will need to continue on 8 more days of antibiotics. Start tomorrow with breakfast and take the medication twice a day 3. If experiencing any concerning symptoms or worsening abdominal pain, please go to your closest emergency department 1. Siga con caal mdico de atencin primaria en 1-2 semanas 2. Tendr que continuar 8 ruiz ms de antibiticos. Comience maana con el desayuno y tome el medicamento dos veces al da 3. Si experimenta algn sntoma preocupante o empeoramiento del dolor abdominal, vaya a caal departamento de emergencias ms dejesus Primary Care Provider Care Physician No Primary Time spent on discharge: > 30 minutes Pending Labs Laboratory Tests Test 08/28/18 13:27 White Blood Count 7.5 10^3/ul (4.8-10.8) Red Blood Count 4.42 10^6/ul (4.20-5.40) Hemoglobin 13.4 g/dl (12.0-16.0) Hematocrit 41.3 % (37.0-47.0) Mean Corpuscular Volume 93.4 fl (82.0-101.0) Mean Corpuscular Hemoglobin 30.3 pg (29.0-33.0) Mean Corpuscular Hemoglobin Concent 32.4 g/dl (32.0-37.0) Red Cell Distribution Width 12.2 % (11.5-14.5) Platelet Count 189 10^3/UL (140-415) Mean Platelet Volume 11.1 fl (7.4-10.4) Immature Granulocytes % 0.400 % (0.001-0.429) Neutrophils % 62.7 % (39.0-77.0) Lymphocytes % 23.6 % (15.0-51.0) Monocytes % 9.7 % (0.0-11.0) Eosinophils % 2.9 % (0.0-7.0) Basophils % 0.7 % (0.0-2.0) Nucleated Red Blood Cells % 0.0 /100WBC (0.0-0.0) Immature Granulocytes # 0.030 10^3/ul (0.0-0.031) Neutrophils # 4.7 10^3/ul (1.6-7.5) Lymphocytes # 1.8 10^3/ul (0.8-2.9) Monocytes # 0.7 10^3/ul (0.3-0.9) Eosinophils # 0.2 10^3/ul (0.0-0.5) Basophils # 0.1 10^3/ul (0.0-0.1) Nucleated Red Blood Cells # 0.0 10^3/ul (0.0-0.0) DEADNRE MORALES MD Aug 28, 2018 20:02
== END 2018-08-28 17:40 | disposition home or self-care (01) | DRG 395 ==
LOC: E/R 12:12 → MS1 17:26
PROVIDERS: ADMIT Internal Medicine; ATTEND Internal Medicine
DX: K35.80 Unspecified acute appendicitis (principal); E87.6 Hypokalemia; K76.0 Fatty (change of) liver, not elsewhere classified; R11.2 Nausea with vomiting, unspecified; M19.90 Unspecified osteoarthritis, unspecified site
CPT/HCPCS: 36415; 71045; 74176; 76705; 80053; 81003; 83690; 83735; 85025; 93005; 96374; 97161; 97167; J2270; J2405; J2543; J3475; J3480; J7030; J7042